=== PATIENT | female | born 1950 | race Caucasian/White ===

== ENCOUNTER 2018-12-29 13:28 | Emergency (ER) | payer MEDICARE, BC ==
--- NOTE | 2018-12-29 16:56 | UC ---
Abdominal Pain Female HPI - HPI Summary HPI Summary: ABOUT 10 DAYS OF INTERMITTENT DULL LEFT SIDED ABDOMINAL PAIN AND BLOATING. SYMPTOMS HAVE BEEN INTERMITTENT BUT OVER THE PAST FEW DAYS HAVE BECOME MORE FREQUENT AND LONGER LASTING. NO FEVER, NAUSEA/VOMITING, DIARRHEA. NO CHEST PAIN OR SHORTNESS OF BREATH. - History of Current Complaint Chief Complaint: UCAbdominalPain Stated Complaint: ABDOMINAL PAIN Time Seen by Provider: 12/29/18 16:35 Hx Obtained From: Patient, Family/Library Media Assistant - Onset/Duration: Gradual Onset, Lasting Days, Still Present Severity Initially: Moderate Severity Currently: Moderate Pain Intensity: 3 Pain Scale Used: 0-10 Numeric Location: Discrete At: LUQ Radiates: No Character: Dull Aggravating Factor(s): Nothing Alleviating Factor(s): Spontaneous Resolution Associated Signs and Symptoms: Negative: Diaphoresis, Fever, Dizzy, Back Pain, Constipation, Blood in Stool, Urinary Symptoms, Decreased Appetite, Vaginal Discharge, Nausea, Vomiting, Diarrhea Allergies/Adverse Reactions: Allergies Allergy/AdvReac Type Severity Reaction Status Date / Time Sulfa (Sulfonamide Allergy Mild Rash And Verified 12/29/18 14:27 Antibiotics) Itching enviromental Allergy Mild runny nose Uncoded 12/29/18 14:27 etc, eyes itch Home Medications: Home Medications Atenolol TAB* [Tenormin TAB* 25 MG] 25 mg PO BID 12/29/18 [History Confirmed 11/12] Olopatadine 0.1% OPHTH (NF) [Patanol 0.1% OPHTH (NF)] 1 drop BOTH EYES DAILY PRN 12/29/18 [History Confirmed 12/29/18] Sertraline* [Zoloft*] 12.5 mg PO DAILY 12/29/18 [History Confirmed 12/29/18] PMH/Surg Hx/FS Hx/Imm Hx Cardiovascular History: Cardiac Disease - ARRYHTHMIA - Surgical History Surgical History: Yes Surgery Procedure, Year, and Place: partial hysterectomy, cervical discectomy 2001 - Family History Known Family History: Negative: Cardiac Disease, Hypertension, Diabetes - Social History Alcohol Use: Rare Alcohol Amount: 1/WEEK Substance Use Type: None Smoking Status (MU): Never Smoked Tobacco Have You Smoked in the Last Year: No Review of Systems All Other Systems Reviewed And Are Negative: Yes Constitutional: Positive: Negative Respiratory: Positive: Negative Cardiovascular: Positive: Negative Gastrointestinal: Positive: Abdominal Pain Genitourinary: Positive: Negative Physical Exam Triage Information Reviewed: Yes Appearance: Well-Appearing, No Pain Distress, Well-Nourished Vital Signs: Initial Vital Signs Temp 98.3 F 12/29/18 14:20 Pulse 65 12/29/18 14:20 Resp 16 12/29/18 14:20 BP 103/72 12/29/18 14:20 Pulse Ox 99 12/29/18 14:20 Vital Signs Reviewed: Yes Eyes: Positive: Conjunctiva Clear ENT: Positive: Hearing grossly normal Neck: Positive: Supple Respiratory Exam: Normal Cardiovascular Exam: Normal Abdomen Description: Positive: Soft, Other: - MODERATELY TENDER ABDOMEN LEFT OF UMBILICUS. NO RIGIDITY OR REBOUND. Negative: CVA Tenderness (R), CVA Tenderness (L), Distended, Guarding Bowel Sounds: Positive: Present Musculoskeletal: Positive: No Edema Neurological: Positive: Alert Psychological: Positive: Age Appropriate Behavior Skin: Negative: Rashes Diagnostics - Radiology CT ABD/PELVIS W/O CONTRAST Radiology Interpretation Completed By: Radiologist Summary of Radiographic Findings: 1. MODERATE TO LARGE AMOUNT RETAINED STOOL. 2. SMALL AMOUNT OF FREE INTRAPERITONEAL FLUID IN THE PELVIS. 3. POSSIBLE CHOLELITHIASIS. 3. STATUS POST HYSTERECTOMY. Abd Pain Female Course/Dx - Course Course Of Treatment: OTHER THAN LEFT-SIDED ABDOMINAL PAIN PATIENT IS OTHERWISE ASYMPTOMATIC. CT SCAN SHOWED A MODERATE TO LARGE AMOUNT OF RETAINED STOOL. PATIENT'S SYMPTOMS MAY BE EXPLAINED BY SIMPLE CONSTIPATION. HAVE ADVISED MIRALAX DAILY TO CLEAR OUT HER BOWELS. HER SYMPTOMS SHOULD RESOLVE OVER THE NEXT WEEK OR SO. SHE WILL GO TO THE ER WITHOUT FAIL IF HER SYMPTOMS WORSEN OR DO NOT IMPROVE. - Differential Dx/Diagnosis Provider Diagnosis: Abdominal pain, Constipation Discharge - Sign-Out/Discharge Documenting (check all that apply): Patient Departure All imaging exams completed and their final reports reviewed: Yes - Discharge Plan Condition: Stable Disposition: HOME Patient Education Materials: Constipation (ED), Abdominal Pain (ED) Referrals: Ashlee Mccray MD [Primary Care Provider] - Additional Instructions: CT SCAN SHOWS MODERATE TO LARGE AMOUNT RETAINED STOOL. IT IS CERTAINLY POSSIBLE THAT YOUR SYMPTOMS ARE DUE TO CONSTIPATION. I RECOMMEND YOU TAKE MIRALAX ONCE DAILY FOR THE SHORT-TERM TO CLEAR OUT YOUR BOWELS. YOUR SYMPTOMS SHOULD IMPROVE WITH THIS TREATMENT. IF YOUR SYMPTOMS DO NOT IMPROVE OR IF YOU DEVELOP WORSENING PAIN, NAUSEA/VOMITING, FEVER OR ANY OTHER CONCERNING SYMPTOMS GO DIRECTLY TO THE ER FOR FURTHER EVALUATION. - Billing Disposition and Condition Condition: STABLE Disposition: Home
[2018-12-29 18:17] VITALS: BP 110/70
== END 2018-12-29 18:17 | disposition home or self-care (01) ==
LOC: UCEAST 13:28
DX: K59.00 Constipation, unspecified (principal); I49.9 Cardiac arrhythmia, unspecified
CPT/HCPCS: 74176; 81003; 87086; 99211; G0463